=== PATIENT | female | born 1985 | race Caucasian/White ===

== ENCOUNTER 2017-12-16 04:40 | Emergency (ER) | payer MEDICAID ==
[2017-12-16] MEDS: BUPIVACAINE 0.25% (MPF) 10 ML 10 ML VIAL INJ (07:12)
== END 2017-12-16 08:05 | disposition home or self-care (01) ==
LOC: FTE 04:40
DX: M62.830 Muscle spasm of back (principal)
CPT/HCPCS: 20552; 99283-25

== ENCOUNTER 2018-09-14 15:36 | Emergency (ER) | payer MEDICAID ==
[2018-09-14] MEDS: DIPHENHYDRAMINE 50 MG INJ IV (16:48)
[2018-09-14] MEDS: METOCLOPRAMIDE 10 MG INJ IV (16:48)
[2018-09-14] MEDS: SOD CHLORIDE 0.9% 1,000 ML IV (16:48)
[2018-09-14 16:59] LABS: ADD UMIC YES; UR ASCORBIC ACID NEGATIVE (NEGATIVE); UR BILIRUBIN (Dip) NEGATIVE (NEGATIVE); UR BLOOD (Dip) 1+ mg/dL (NEGATIVE); UR CLARITY CLEAR (CLEAR); UR COLOR YELLOW (YELLOW); UR GLUCOSE (Dip) NEGATIVE (NEGATIVE); UR KETONES (Dip) NEGATIVE (NEGATIVE); UR LEUKOCYTE ESTERASE (Dip) NEGATIVE Leu/ul (NEGATIVE); UR MUCUS FEW /HPF (NONE SEEN); UR NITRITE (Dip) NEGATIVE (NEGATIVE); UR RBC 2 /HPF (0-5); UR SPECIFIC GRAVITY (Dip) 1.023 (1.003-1.030); UR SQUAMOUS EPITHELIAL CELL FEW /HPF (FEW); UR TOTAL PROTEIN (Dip) NEGATIVE (NEGATIVE); UR UROBILINOGEN (Dip) NEGATIVE (NEGATIVE); UR WBC 1 /HPF (0-5)
[2018-09-14] MEDS ORDERED: DEXAMETHASONE 10 MG/ML 1 ML INJ IM (18:00)
[2018-09-14] MEDS: DEXAMETHASONE 4 MG/ML 1 ML INJ IM (18:15)
== END 2018-09-14 18:19 | disposition home or self-care (01) ==
LOC: FTE 15:36
DX: J32.9 Chronic sinusitis, unspecified (principal); G51.0 Bell's palsy; G43.909 Migraine, unspecified, not intractable, without status migrainosus
CPT/HCPCS: 70450; 81001; 81025; 96361; 96372; 96374; 96375; 99285-25

== ENCOUNTER 2019-08-18 01:49 | Emergency (ER) | payer MEDICAID ==
[2019-08-18] MEDS: IBUPROFEN 600 MG TAB PO (02:30)
== END 2019-08-18 03:55 | disposition home or self-care (01) ==
LOC: FTE 01:49
DX: S82.64XA Nondisplaced fracture of lateral malleolus of right fibula, initial encounter for closed fracture (principal); X50.1XXA Overexertion from prolonged static or awkward postures, initial encounter; Y92.9 Unspecified place or not applicable
CPT/HCPCS: 73610; 73610-RT; 99283-25